=== PATIENT | male | born 1975 | race African-American/Black ===

== ENCOUNTER 2022-12-01 13:50 | Observation (INO) | payer OTHER ==
--- OUTSIDE RECORDS SUMMARY | 2022-12-01 13:53 | XMS REPORT | Continuity of Care Document ---
:1975 Author Organization [facility] t Address [address] [place] [id number] Care Team Providers Name Role Phone RICKY Attending Clinician Unavailable RICKY Admitting Clinician Unavailable Problems This patient has no known problems. Allergies, Adverse Reactions, Alerts This patient has no known allergies or adverse reactions. Medications This patient has no known medications. Procedures This patient has no known procedures. Encounters Start End Encounter Admission Attending Care Care Encounter Source Date/Time Date/Time Type Type Clinicians Facility Department ID 2022-02-23 2022-02-23 Outpatient [facility] WYSILVINO [id number] 03:15:00 03:15:[id number] [facility] Program Results This patient has no known results.
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
[2022-12-01 15:16] LABS: Absolute Lymphocytes (CBC) 2.3 K/uL (0.7-4.9); Hematocrit 42.6 % (39.6-49.0); Lymphocytes % 34.2 % (15.3-44.8); MCV 93.7 fL (80-100); MPV 8.2 fL (7.6-11.3); RBC Red Blood Cell Count 4.55 M/uL (4.33-5.43)
[2022-12-01 15:36] LABS: Magnesium 2.2 mg/dL (1.6-2.4); Potassium 3.9 mEq/L (3.5-5.1); Troponin High Sensitivity 3.9 pg/mL (<58.9)
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
[2022-12-01] MEDS ORDERED: ACETAMINOPHEN 325 MG TABLET PO PRN (18:28)
[2022-12-01] MEDS ORDERED: ONDANSETRON 4 MG/2 ML VIAL IV PRN (18:33)
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
[2022-12-01 19:35] LABS: Protime INR 1.16
[2022-12-01 20:14] LABS: Phosphorus 3.1 mg/dL (2.5-4.9); Thyroid Stimulating Hormone 1.03 uIU/mL (0.358-3.740)
[2022-12-01 20:15] LABS: Magnesium 2.2 mg/dL (1.6-2.4)
[2022-12-01] MEDS: ENOXAPARIN 40 MG/0.4 ML SQ SCH (22:40)
[2022-12-01 22:59] VITALS: BMI 31.2
[2022-12-02 04:24] LABS: Absolute Lymphocytes (CBC) 3.4 K/uL (0.7-4.9); Hematocrit 43.5 % (39.6-49.0); Lymphocytes % 44.4 % (15.3-44.8); MCV 94.7 fL (80-100); MPV 8.1 fL (7.6-11.3); RBC Red Blood Cell Count 4.59 M/uL (4.33-5.43)
[2022-12-02 04:47] LABS: Potassium 4.9 mEq/L (3.5-5.1)
[2022-12-02 05:56] LABS: Urine Bacteria None Seen /HPF (<20); Urine Bilirubin NEGATIVE (Negative); Urine Blood Negative (Negative); Urine Clarity Clear (Clear); Urine Color Light-Yellow (Yellow); Urine Glucose NEGATIVE (Negative); Urine Mucus Slight /HPF (None Seen); Urine Protein TRACE (Negative); Urine RBC <5 /HPF (None Seen); Urine Urobilinogen Normal (Normal); Urine WBC Clump Rare /HPF (None Seen); Urine pH 6.5 (5.0-7.0)
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
[2022-12-02 08:58] VITALS: O2SAT 99
[2022-12-02] MEDS ORDERED: ASPIRIN 81 MG CHEWABLE TABLET PO SCH (09:00)
[2022-12-02] MEDS: ENOXAPARIN 40 MG/0.4 ML SQ SCH (09:55)
--- NOTE | 2022-12-02 12:43 | ECHO ---
HEIGHT: 5 ft 6 in WEIGHT: 191 lb 8 oz DATE OF STUDY: 12/02/[address]: Angella Brown 2-DIMENSIONAL: YES M.MODE: YES DOPPLER: YES COLOR FLOW: YES TDS: NO PORTABLE: YES DEFINITY: NO BUBBLE STUDY: NO DIAGNOSIS: SYNCOPE CARDIAC HISTORY: CATHERIZATION: NO SURGERY: NO PROSTHETIC VALVE: NO PACEMAKER: DEFIBRILLATOR MEASUREMENTS (cm) DIASTOLIC (NORMALS) SYSTOLIC (NORMALS) IVSd 1.0 (0.6-1.2) LA Diam 3.2 (1.9-4.0) LVEF 59% LVIDd 4.6 (3.5-5.7) LVIDs 3.2 (2.0-3.5) %FS 31% LVPWd 1.2 (0.6-1.2) Ao Diam 2.7 (2.0-3.7) 2 DIMENSIONAL ASSESSMENT: RIGHT ATRIUM: NORMAL LEFT ATRIUM: NORMAL RIGHT VENTRICLE: PERMANENT PACEMAKER LEFT VENTRICLE: NORMAL TRICUSPID VALVE: NORMAL MITRAL VALVE: NORMAL PULMONIC VALVE: NORMAL AORTIC VALVE: NORMAL PERICARDIAL EFFUSION: NONE AORTIC ROOT: NORMAL LEFT VENTRICULAR WALL MOTION: NORMAL. DOPPLER/COLOR FLOW: MILD TRICUSPID REGURGITATION. COMMENTS: 1. MILD TRICUSPID REGURGITATION 2. NORMAL LEFT VENTRICULAR SIZE AND FUNCTION 3. AUTOMATIC IMPLANTABLE CARDIOVERTER DEFIBRILLATOR TECHNOLOGIST: ANGEL SCOTT
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
[2022-12-02 16:40] VITALS: BP 113/69; TEMP 97.4
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
[2022-12-02] MEDS ORDERED: ATORVASTATIN 40 MG TAB PO SCH (21:00)
--- NOTE | 2022-12-04 07:07 | EKG ---
Test Date: 2022-12-01 Test Time: 14:34:58 Process Plant Operator: KAYLEN MEASUREMENT RESULTS: Intervals: Rate: 71 GA: 200 QRSD: 90 QT: 364 QTc: 395 [place]: P: 50 GA: 200 QRS: -22 T: 38 INTERPRETIVE STATEMENTS: Normal sinus rhythm Minimal voltage criteria for LVH, may be normal variant Borderline ECG Compared to ECG 07/16/2014 10:22:26 Left ventricular hypertrophy now present T-wave abnormality no longer present Electronically Signed On 12-04-22 07:00:44 CDT by Ivan Lieberman
== END 2022-12-02 17:28 | disposition home or self-care (01) ==
LOC: ER 13:50 → ERHOLD 18:27 → 2ND 20:08
PROVIDERS: ADMIT Internal Medicine; ATTEND Internal Medicine
DX: R55 Syncope and collapse (principal); I50.22 Chronic systolic (congestive) heart failure; I10 Essential (primary) hypertension; E78.5 Hyperlipidemia, unspecified; Z86.73 Personal history of transient ischemic attack (TIA), and cerebral infarction without residual deficits; V49.3XXA Car occupant (driver) (passenger) injured in unspecified nontraffic accident, initial encounter; Y93.89 Activity, other specified; Y92.9 Unspecified place or not applicable
CPT/HCPCS: 93005; 93306; 85025 ×2; 81001; 80048 ×2; 36415 ×2; 83735 ×2; 84100; 85610; 80061; 84443; 84484 ×3; 84439; 83880; 70450; 71045; 93880; 99285; J1650 ×2; G0378